=== PATIENT | male | born 1930 | race Caucasian/White ===

== ENCOUNTER 2017-04-17 21:08 | Inpatient (IN) | payer MEDICARE, OTHER ==
[~2017-04-17] VITALS: Ht 185.4 cm; Wt 83.0 kg
[2017-04-17] MEDS ORDERED: INSU100I3 SQ (21:11)
[2017-04-17] MEDS ORDERED: XALA2.5OS OU (21:17)
[2017-04-17] MEDS ORDERED: INSLAN SQ (21:17)
[2017-04-17] MEDS ORDERED: FLUT16H NASAL (21:17)
[2017-04-17] MEDS ORDERED: GABA-531 PO (21:17)
[2017-04-17] MEDS ORDERED: CLOP75 PO (21:17)
[2017-04-17] MEDS ORDERED: PANT40TA25 PO (21:17)
[2017-04-17] MEDS ORDERED: SITA50 PO (21:17)
[2017-04-17] MEDS ORDERED: FINA5TAB41 PO (21:17)
[2017-04-17] MEDS ORDERED: PROZ10 PO (21:17)
[2017-04-17] MEDS ORDERED: PRED15SO PO (21:17)
[2017-04-17] MEDS ORDERED: FERG325 PO (21:17)
[2017-04-17] MEDS ORDERED: SIMV-261 PO (21:17)
[2017-04-17] MEDS ORDERED: ASCO500 PO (21:17)
[2017-04-17 21:47] LABS: BILIRUBIN,URINE NEGATIVE (NEGATIVE); GLUCOSE, URINE (UA) NEGATIVE (NEGATIVE); KETONES,URINE NEGATIVE (NEGATIVE); LEUKOCYTE ESTERASE ,URINE MODERATE (NEGATIVE); NITRATE,URINE NEGATIVE (NEGATIVE); OCCULT BLOOD,URINE LARGE (NEGATIVE); PROTEIN,URINE TRACE (NEGATIVE); UROBILINOGEN,URINE 0.2 mg/dL (<=1.0)
[2017-04-17 21:51] LABS: HEMATOCRIT 34.2 % (41-53); HEMOGLOBIN 11.4 g/dL (13.5-17.5); MEAN CORPUSCULAR HEMOGLOBIN 28.1 pg (26.0-34.0); MEAN CORPUSCULAR HGB CONC 33.3 G/dL (31.0-37.0); MEAN CORPUSCULAR VOLUME 84 fL (80-100); PLATELET COUNT (AUTO) 302 K/uL (150-450); RED BLOOD CELL COUNT(AUTO) 4.05 MIL/uL (4.50-5.90); RED CELL DISTRIBUTION WIDTH 16.9 % (11.5-14.5)
[2017-04-17 22:01] LABS: APPEARANCE,URINE HAZY (CLEAR)
[2017-04-17 22:03] LABS: BACTERIA,URINE Few /HPF (None Seen); SQUAMOUS EPITHELIAL CELL,UR Moderate /LPF (None Seen); YEAST,URINE Many /HPF (None Seen)
[2017-04-17 22:10] LABS: ALANINE AMINOTRANSFERASE 12 U/L (12-78); ALBUMIN 2.2 g/dL (3.4-5.0); ALKALINE PHOSPHATASE 134 U/L (46-116); ANION GAP 27 mmol/L (8-16); ASPARTATE AMINOTRANSFERASE 23 U/L (15-37); BILIRUBIN,TOTAL 0.7 mg/dL (0.1-1.0); CALCIUM, TOTAL 8.9 mg/dL (8.8-10.5); CARBON DIOXIDE 11 mmol/L (22-29); CHLORIDE 86 mmol/L (98-107); CREATINE KINASE, TOTAL 69 U/L (39-308); GLOMERULAR FILTR. RATE CALC 4 mL/min (>60); GLUCOSE,RANDOM 319 mg/dL (70-110); TOTAL PROTEIN, SERUM 7.8 g/dL (6.4-8.2)
[2017-04-17] MEDS ORDERED: IPRATROPIUM BROMIDE 0.5 MG/2.5 ML NEB SOLUTION NEB ONE (22:15)
[2017-04-17] MEDS ORDERED: LEVALBUTEROL HCL 1.25 MG/0.5 ML NEB SOLUTION NEB ONE (22:15)
[2017-04-17 22:19] LABS: POTASSIUM 6.7 mmol/L (3.5-5.1); SODIUM SERUM 124 mmol/L (136-145)
[2017-04-17] MEDS ORDERED: 0.9% SODIUM CHLORIDE 5 ML NEB SOLUTION NEB ONE (22:19)
[2017-04-17 22:20] LABS: UREA NITROGEN, BLOOD 191 mg/dL (7-18)
[2017-04-17 22:32] LABS: BAND NEUTROPHILS % (MANUAL) 4 % (1-5); LYMPHOCYTES % (MANUAL) 2 % (22-44); MONOCYTES % (MANUAL) 7 % (2-9); SEGMENTED NEUTROPHILS % 87 % (40-70)
[2017-04-17 22:36] LABS: B-TYPE NATRIURETIC PEPTIDE 80 pg/mL (0-100)
[2017-04-17] MEDS ORDERED: DEXTROSE 50%-WATER 25 GM/50 ML SYRINGE IVP ONE (22:45)
[2017-04-17] MEDS ORDERED: INSULIN REGULAR, HUMAN 100 UNITS/ML IVP ONE (22:45)
[2017-04-17] MEDS ORDERED: ONDANSETRON HCL 4 MG/2 ML VIAL IVP PRN (23:00)
[2017-04-17] MEDS ORDERED: 0.9% SODIUM CHLORIDE 10 ML SYRINGE IVP PRN (23:00)
[2017-04-17 23:03] LABS: GLUCOSE,POINT OF CARE 315 MG/DL (70-110)
[2017-04-17] MEDS ORDERED: PIPERACILLIN SODIUM/TAZOBACTAM 2.25 GM in DEXTROSE 5%-WATER 50 ML IV ONE (23:15)
[2017-04-17] MEDS ORDERED: VANCOMYCIN HCL 1.5 GM in DEXTROSE 5%-WATER 250 ML IV ONE (23:15)
[2017-04-18] MEDS ORDERED: HEPARIN SODIUM,PORCINE 1,000 UNITS/ML VIAL ONE (00:43)
[2017-04-18] MEDS ORDERED: ACETAMINOPHEN 325 MG TABLET PO PRN (03:00)
[2017-04-18] MEDS ORDERED: 0.9% SODIUM CHLORIDE 10 ML SYRINGE IVP PRN (03:00)
[2017-04-18] MEDS ORDERED: OxyCODONE HCL/ACETAMINOPHEN 5-325 MG TABLET PO PRN ×2 (03:00)
[2017-04-18] MEDS: DOCUSATE SODIUM 100 MG CAPSULE PO SCH ×3 (03:00→20:39)
[2017-04-18] MEDS ORDERED: MAGNESIUM HYDROXIDE SUSPENSION 30 ML UDCUP PO PRN (03:00)
[2017-04-18] MEDS ORDERED: ONDANSETRON HCL 4 MG/2 ML VIAL IVP PRN (03:00)
[2017-04-18] MEDS ORDERED: DEXTROSE 50%-WATER 25 GM/50 ML SYRINGE IVP PRN (03:15)
[2017-04-18] MEDS ORDERED: ALBUTEROL SULFATE 2.5 MG/0.5 ML NEB SOLUTION NEB PRN (03:15)
[2017-04-18 04:00] VITALS: BP 88/71
[2017-04-18 05:18] LABS: EOSINOPHILS % (AUTO) 0.1 % (1.0-6.0); HEMATOCRIT 33.6 % (41-53); HEMOGLOBIN 11.1 g/dL (13.5-17.5); LYMPHOCYTES # (AUTO) 0.7 K/uL (1.0-4.8); LYMPHOCYTES % (AUTO) 2.6 % (22.0-44.0); MEAN CORPUSCULAR HEMOGLOBIN 28.2 pg (26.0-34.0); MEAN CORPUSCULAR HGB CONC 33.1 G/dL (31.0-37.0); MEAN CORPUSCULAR VOLUME 85 fL (80-100); MONOCYTES # (AUTO) 0.7 K/uL (0.1-1.0); MONOCYTES % (AUTO) 2.9 % (2.0-9.0); NEUTROPHILS # (AUTO) 24.2 K/uL (1.8-7.7); PLATELET COUNT (AUTO) 232 K/uL (150-450); RED BLOOD CELL COUNT(AUTO) 3.95 MIL/uL (4.50-5.90); RED CELL DISTRIBUTION WIDTH 16.7 % (11.5-14.5)
[2017-04-18 05:52] LABS: CALCIUM, TOTAL 8.7 mg/dL (8.8-10.5); CREATININE 10.73 mg/dL (0.60-1.30); MAGNESIUM 3.1 mg/dL (1.80-2.40); POTASSIUM 5.9 mmol/L (3.5-5.1)
[2017-04-18] MEDS ORDERED: PIPERACILLIN SODIUM/TAZOBACTAM 2.25 GM in DEXTROSE 5%-WATER 50 ML IV SCH (06:00)
[2017-04-18 06:03] LABS: NEUTROPHILS % (AUTO) 94.4 % (40.0-70.0)
[2017-04-18] MEDS: INSULIN ASPART 100 UNITS/ML SQ PRN ×3 (06:15→18:18)
[2017-04-18] MEDS: ALBUTEROL SULFATE 2.5 MG/0.5 ML NEB SOLUTION NEB SCH ×3 (07:34→19:44)
[2017-04-18] MEDS: IPRATROPIUM BROMIDE 0.5 MG/2.5 ML NEB SOLUTION NEB SCH ×3 (07:34→19:44)
[2017-04-18 08:00] VITALS: BP 108/59
[2017-04-18 08:07] LABS: ABG A-A DIFF O2 636.3 mmHg (10-20.0); ABG BASE EXCESS -13.4 mmol/L (-2.0-3.0); ABG CARBOXYHEMOGLOBIN 0.5 % (0.0-1.5); ABG HCO3 15.1 mmol/L (22.0-26.0); ABG METHEMOGLOBIN 0.3 % (0.0-1.5); ABG OXYGEN CONTENT 14.2 mL/dL (15.0-23.0); ABG OXYGEN SATURATION 87.4 % (95.0-98.0); ABG OXYHEMOGLOBIN 86.7 % (94.0-100.0); ABG PCO2 23 mmHg (35-45); ABG PH 7.345 (7.35-7.450); ABG TOTAL HEMOGLOBIN 11.6 G/dL (12.0-18.0); PO2, ARTERIAL BG 55.8 mmHg (71.0-79.0); SITE, BLOOD GAS RT RADIAL; SOURCE, BLOOD GAS ARTERIAL
[2017-04-18 08:08] LABS: O2 DEVICE,BLOOD GAS NON REBREATHER (ROOM AIR)
[2017-04-18] MEDS ORDERED: SODIUM BICARBONATE 150 MEQ in DEXTROSE 5%-WATER 1,000 ML IV SCH (08:15)
[2017-04-18] MEDS ORDERED: SitaGLIPtin PHOSPHATE 50 MG TABLET PO SCH (09:00)
[2017-04-18] MEDS: PrednisoLONE 15 MG/5 ML SOLUTION UDCUP PO SCH ×4 (09:00→20:40)
[2017-04-18] MEDS ORDERED: FINASTERIDE 5 MG TABLET PO SCH (09:00)
[2017-04-18] MEDS ORDERED: CLOPIDOGREL BISULFATE 75 MG TABLET PO SCH (09:00)
[2017-04-18] MEDS ORDERED: FLUoxetine HCL 10 MG CAPSULE PO SCH (09:00)
[2017-04-18] MEDS ORDERED: PANTOPRAZOLE SODIUM 40 MG DR TABLET PO SCH (09:00)
[2017-04-18] MEDS ORDERED: VANCOMYCIN HCL 1 GM/D5% WATER 200 ML IV PRN (09:00)
[2017-04-18] MEDS ORDERED: LATANOPROST 0.005% 2.5 ML OPHTHALMIC SOLUTION OU SCH (09:00)
[2017-04-18] MEDS ORDERED: HEPARIN SODIUM,PORCINE 1,000 UNITS/ML VIAL IVP ONE (09:29)
[2017-04-18] MEDS ORDERED: MANNITOL 25%-12.5 GM/50 ML VIAL IVP ONE (09:29)
[2017-04-18] MEDS ORDERED: NOREPINEPHRINE 4 MG/D5%-WATER 250 ML IV PRN (10:29)
[2017-04-18 11:43] LABS: CALCIUM, TOTAL 8.5 mg/dL (8.8-10.5); CREATININE 10.44 mg/dL (0.60-1.30); POTASSIUM 5.5 mmol/L (3.5-5.1)
[2017-04-18 12:00] VITALS: BP 85/52
[2017-04-18 14:31] LABS: CALCIUM, TOTAL 8.6 mg/dL (8.8-10.5); CREATININE 10.64 mg/dL (0.60-1.30); POTASSIUM 5.6 mmol/L (3.5-5.1)
[2017-04-18] MEDS ORDERED: VANCOMYCIN HCL 1 GM/D5% WATER 200 ML IV ONE (15:00)
[2017-04-18 15:39] LABS: GLUCOSE,POINT OF CARE 365 MG/DL (70-110)
[2017-04-18 15:39] LABS: GLUCOSE,POINT OF CARE 355 MG/DL (70-110)
[2017-04-18 15:39] LABS: GLUCOSE,POINT OF CARE 279 MG/DL (70-110)
[2017-04-18] MEDS ORDERED: PHENYLEPHRINE 200 MG/D5%-WATER 250 ML IV PRN (15:53)
[2017-04-18 16:00] VITALS: BP 103/50
[2017-04-18 16:30] LABS: CALCIUM, TOTAL 8.7 mg/dL (8.8-10.5); CREATININE 6.45 mg/dL (0.60-1.30); POTASSIUM 4.2 mmol/L (3.5-5.1)
[2017-04-18 18:35] LABS: CALCIUM, TOTAL 8.4 mg/dL (8.8-10.5); CREATININE 7.68 mg/dL (0.60-1.30); POTASSIUM 5.3 mmol/L (3.5-5.1)
[2017-04-18 20:00] VITALS: BP 90/47
[2017-04-18] MEDS ORDERED: POTASSIUM CHLORIDE 20 MEQ in NXSTAGE RFP-402 K0/CA3 5,000 ML IRRIG PRN (20:00)
[2017-04-18] MEDS ORDERED: INSULIN GLARGINE,HUM.REC.ANLOG 100 UNITS/ML SQ SCH (21:00)
[2017-04-18] MEDS ORDERED: SIMVASTATIN 40 MG TABLET PO SCH (21:00)
[2017-04-18] MEDS: CALCIUM GLUCONATE IV SCH (21:09)
[2017-04-18] MEDS: [UNRECOGNIZED DRUG - OTHER] IV SCH (21:09)
[2017-04-18] MEDS: SODIUM BICARBONATE IV SCH (21:09)
[2017-04-18 23:52] LABS: CALCIUM, TOTAL 8.2 mg/dL (8.8-10.5); CREATININE 7.63 mg/dL (0.60-1.30); POTASSIUM 5.2 mmol/L (3.5-5.1)
[2017-04-19] VITALS: BP 96/57
[2017-04-19] MEDS: IPRATROPIUM BROMIDE 0.5 MG/2.5 ML NEB SOLUTION NEB SCH (02:08)
[2017-04-19] MEDS: ALBUTEROL SULFATE 2.5 MG/0.5 ML NEB SOLUTION NEB SCH (02:08)
[2017-04-19] MEDS ORDERED: DILTIAZEM HCL 125 MG in DEXTROSE 5%-WATER 100 ML IV PRN (03:54)
[2017-04-19 04:00] VITALS: BP 109/62
[2017-04-19 04:16] VITALS: BP 92/67
[2017-04-19] MEDS: [UNRECOGNIZED DRUG - OTHER] IV SCH (04:17)
[2017-04-19] MEDS: SODIUM BICARBONATE IV SCH (04:17)
[2017-04-19] MEDS: CALCIUM GLUCONATE IV SCH (04:17)
[2017-04-19 05:13] LABS: GLUCOSE,POINT OF CARE 194 MG/DL (70-110)
[2017-04-19 05:13] LABS: GLUCOSE,POINT OF CARE 209 MG/DL (70-110)
[2017-04-19 06:23] LABS: MEAN CORPUSCULAR HEMOGLOBIN 28.7 pg (26.0-34.0); MEAN CORPUSCULAR HGB CONC 33.4 G/dL (31.0-37.0); MEAN CORPUSCULAR VOLUME 86 fL (80-100); PLATELET COUNT (AUTO) 172 K/uL (150-450); RED BLOOD CELL COUNT(AUTO) 4.19 MIL/uL (4.50-5.90); RED CELL DISTRIBUTION WIDTH 17.7 % (11.5-14.5)
[2017-04-19 08:38] LABS: GLUCOSE,POINT OF CARE 160 MG/DL (70-110)
[2017-04-19 10:25] LABS: BAND NEUTROPHILS % (MANUAL) 9 % (1-5); LYMPHOCYTES % (MANUAL) 2 % (22-44); METAMYELOCYTES % 1 % (0-0); MONOCYTES % (MANUAL) 11 % (2-9); SEGMENTED NEUTROPHILS % 77 % (40-70)
== END 2017-04-19 09:30 | disposition expired | DRG 871 ==
LOC: EMS 21:11 → ICU 23:49
PROVIDERS: ADMIT Internal Medicine; ATTEND Internal Medicine
PROC: 05HM33Z Insertion of Infusion Device into Right Internal Jugular Vein, Percutaneous Approach (ICD-10-PCS; principal; 2017-04-18)
PROC: B543ZZA Ultrasonography of Right Jugular Veins, Guidance (ICD-10-PCS; 2017-04-18)
PROC: 5A09357 Assistance with Respiratory Ventilation, Less than 24 Consecutive Hours, Continuous Positive Airway Pressure (ICD-10-PCS; 2017-04-18)
PROC: 5A1D70Z Performance of Urinary Filtration, Intermittent, Less than 6 Hours Per Day (ICD-10-PCS; 2017-04-18)
PROC: 5A1D80Z Performance of Urinary Filtration, Prolonged Intermittent, 6-18 hours Per Day (ICD-10-PCS; 2017-04-19)
DX: A41.9 Sepsis, unspecified organism (principal); J69.0 Pneumonitis due to inhalation of food and vomit; E43 Unspecified severe protein-calorie malnutrition; J96.01 Acute respiratory failure with hypoxia; N17.9 Acute kidney failure, unspecified; G93.49 Other encephalopathy; N39.0 Urinary tract infection, site not specified; E87.1 Hypo-osmolality and hyponatremia; E87.5 Hyperkalemia; D64.9 Anemia, unspecified; E03.9 Hypothyroidism, unspecified; E11.22 Type 2 diabetes mellitus with diabetic chronic kidney disease; E78.00 Pure hypercholesterolemia, unspecified; E78.5 Hyperlipidemia, unspecified; F03.90 Unspecified dementia, unspecified severity, without behavioral disturbance, psychotic disturbance, mood disturbance, and anxiety; I12.9 Hypertensive chronic kidney disease with stage 1 through stage 4 chronic kidney disease, or unspecified chronic kidney disease; I25.10 Atherosclerotic heart disease of native coronary artery without angina pectoris; N18.3 Chronic kidney disease, stage 3 (moderate); Z66 Do not resuscitate; I71.4 Abdominal aortic aneurysm, without rupture; Z86.73 Personal history of transient ischemic attack (TIA), and cerebral infarction without residual deficits; Z91.013 Allergy to seafood; Z79.4 Long term (current) use of insulin; Z68.24 Body mass index [BMI] 24.0-24.9, adult; Z79.899 Other long term (current) drug therapy
CPT/HCPCS: 82805; 82962; 83735; 87040; 87081; 87086; 87106; 87340; 93005; 94640; 94644; 94660; 96365; 96375; 99291; J0610; J1644; J1815; J2150; J2370; J2543; J3370; J3490; J7060; J7510